=== PATIENT | male | born 1965 | race Caucasian/White ===

== ENCOUNTER 2018-05-13 08:29 | Outpatient (CLI) | payer OTHER ==
[2018-05-13 09:05] LABS: #Basophils 0.1 thou/uL (0.0-0.2); #Eosinphils 0.2 thou/uL (0.0-0.7); #Lymphocytes 2.8 thou/uL (1.20-3.40); #Monocytes 0.5 thou/uL (0.11-0.59); #Neutrophils 2.4 thou/uL (1.40-6.50); %Basophils 1.3 % (0.0-1.0); %Eosinophils 4.1 % (0.0-10.0); %Lymphocytes 46.5 % (21.0-51.0); %Monocytes 8.7 % (0.0-10.0); %Neutrophils 39.5 % (42.0-75.0); Hemoglobin 16.5 g/dL (14.0-18.0); Mean Corpuscular HGB CONC 35.2 g/dL (32.0-36.0); Mean Corpuscular Hemoglobin 33.9 pg (27.0-31.0); Mean Corpuscular Volume 96.2 fL (78.0-98.0); Mean Platelet Volume 7.8 fL (7.4-10.4); Platelet Count 263 thou/uL (130-400); RBC Distribution Width 11.2 % (11.5-14.5); Red Blood Cell (RBC) Count 4.88 mill/uL (4.70-6.10)
[2018-05-13 09:32] LABS: Anion Gap 12 mmol/L (10-20); BUN (Urea Nitrogen) 16 mg/dL (8.9-20.6); Calc. Creatinine Clearance 0 mL/min (70-130); Carbon Dioxide 25 mmol/L (22-29); Chloride 104 mmol/L (98-107); Estimated GFR-MDRD 79; Glucose 186 mg/dL (70-105); Sodium 137 mmol/L (136-145)
--- NOTE | 2018-05-15 21:44 | EKG ---
Test Reason : Blood Pressure : / mmHG Vent. Rate : 062 BPM Atrial Rate : 062 BPM P-R Int : 136 ms QRS Dur : 104 ms QT Int : 434 ms P-R-T Axes : 050 -37 004 degrees QTc Int : 440 ms Normal sinus rhythm Left axis deviation Minimal voltage criteria for LVH, may be normal variant Abnormal ECG When compared with ECG of 19-OCT-2011 11:18, No significant change was found Confirmed by Sugar GARSIA ([id number]) on 05/15/2018 9:44:02 PM Referred By: RYAN Confirmed By:Sugar GARSIA
== END 2018-05-13 08:30 | disposition home or self-care (01) ==
LOC: LABBT 08:29
PROVIDERS: ATTEND Surgery
DX: Z01.818 Encounter for other preprocedural examination (principal); K42.9 Umbilical hernia without obstruction or gangrene
CPT/HCPCS: 80048; 85025; 93005; 93010

== ENCOUNTER 2018-05-23 06:46 | Day surgery (SDC) | payer OTHER ==
[2018-05-13 08:57] VITALS: BMI 31.7
[2018-05-23] MEDS ORDERED: Bupivacaine/Epinephrine 0.25% 30 ML VIAL ONE (07:14)
[2018-05-23] MEDS ORDERED: CEFAZOLIN 2 GM/50 ML BAG ONE (08:21)
[2018-05-23] MEDS ORDERED: Fentanyl 100 MCG/2 ML VIAL ONE ×2 (08:42→10:07)
[2018-05-23] MEDS ORDERED: SUGAMMADEX SODIUM 500 MG/5 ML VIAL ONE (09:18)
[2018-05-23] MEDS ORDERED: Ondansetron PF 4 MG/2 ML Vial ONE (13:26)
[2018-05-23] MEDS ORDERED: Ketorolac Tromethamine 30 MG/ML VIAL ONE (13:26)
[2018-05-23] MEDS ORDERED: Lidocaine 1% PF 5 ML VIAL ONE (13:26)
[2018-05-23] MEDS ORDERED: PROPOFOL 200 MG/20 ML VIAL ONE (13:26)
--- NOTE | 2018-05-23 13:52 | OP ---
DATE OF PROCEDURE: 05/23/2018 PREOPERATIVE DIAGNOSIS: Umbilical hernia. POSTOPERATIVE DIAGNOSIS: Umbilical hernia. PROCEDURE PERFORMED: Umbilical repair with mesh, [address] ANESTHESIA: General. ESTIMATED BLOOD LOSS: Minimal. COMPLICATIONS: None. SPECIMENS: None. TECHNIQUE: The patient was taken to the operating room and laid supine on the operating room table. After general anesthetic was obtained, the abdomen was shaved, prepped, and draped in sterile fashion. A curved incision was made below the umbilicus. Cautery was used to dissect down to and the umbilical stalk was amputated, exposing umbilical defect. The edges of the defect were freshened. A [address] mesh was brought into the sterile field and placed in the abdominal cavity. Its tails were used to pull it up against the abdominal wall. The skirt and tails were sewn via U-stitch of permanent braided sutures laterally, superiorly and inferiorly. The mesh was covered by closing the fascia loosely over the top. The wound was irrigated. Local anesthetic was applied. The umbilical stalk was tacked back down using 3-0 Vicryl. Subcutaneous tissues were closed using 3-0 Vicryl. The skin was closed using running 4-0 Monocryl and Dermabond. The patient was sent to Recovery in stable condition. All instrument counts, needle counts, and lap counts are correct. Job ID: [id number]
== END 2018-05-23 12:29 | disposition home or self-care (01) ==
LOC: SDC 06:46
PROVIDERS: ATTEND Surgery
PROC: 0WUF0JZ Supplement Abdominal Wall with Synthetic Substitute, Open Approach (ICD-10-PCS; principal; 2018-05-23)
DX: K42.9 Umbilical hernia without obstruction or gangrene (principal); Z79.82 Long term (current) use of aspirin; Z79.84 Long term (current) use of oral hypoglycemic drugs; Z79.899 Other long term (current) drug therapy
CPT/HCPCS: J0131; J3010

== ENCOUNTER 2018-06-06 08:52 | Outpatient (CLI) | payer OTHER ==
--- NOTE | 2018-06-06 10:35 | RAD ---
PA AND LATERAL VIEWS CHEST: Date: 06/06/18 HISTORY: Cough, pneumonia. FINDINGS: Comparison made with exam of 05/30/18. The heart size is normal. The lungs are expanded without focal areas of consolidation, pneumothorax, or pleural effusions. IMPRESSION: No radiographic evidence of acute cardiopulmonary process. POS: OFF
== END 2018-06-06 08:53 | disposition home or self-care (01) ==
LOC: SCSRAD 08:52
PROVIDERS: ATTEND Nurse Practitioner Family
DX: J18.1 Lobar pneumonia, unspecified organism (principal)
CPT/HCPCS: 71046

== ENCOUNTER 2020-06-30 07:27 | Outpatient (CLI) | payer OTHER ==
[2020-06-30 16:41] LABS: #Eosinphils 0.2 10x3/uL (0.0-0.5); #Monocytes 0.6 10x3/uL (0.0-1.1); #Neutrophils 3.5 10x3/uL (1.5-8.4); %Basophils 0.5 % (0.0-2.0); %Eosinophils 2.4 % (0.0-6.0); %Lymphocytes 40.8 % (18.0-47.0); %Monocytes 8.5 % (0.0-10.0); %Neutrophils 47.5 % (40.0-75.0); Hemoglobin 14.8 g/dL (14.0-18.0); Mean Corpuscular HGB CONC 35.5 G/DL (32.0-36.0); Mean Corpuscular Hemoglobin 33.7 PG (27.0-33.0); Mean Platelet Volume 11.1 fl (7.4-10.4); Platelet Count 250 10x3/uL (130-400); RBC Distribution Width 11.6 % (11.5-14.5); Red Blood Cell (RBC) Count 4.39 10x6/uL (4.40-5.80); White Blood Cell (WBC) Count 7.4 10x3/uL (4.5-11.0)
[2020-07-01 17:49] LABS: SARS-CoV-2 PCR by NAA Not Detected (NotDetected)
== END 2020-06-30 07:28 | disposition home or self-care (01) ==
LOC: LABBT 07:27
PROVIDERS: ATTEND Orthopaedic Surgery Hand Surgery
DX: Z01.812 Encounter for preprocedural laboratory examination (principal); M95.5 Acquired deformity of pelvis; L92.3 Foreign body granuloma of the skin and subcutaneous tissue; Z20.822 Contact with and (suspected) exposure to COVID-19
CPT/HCPCS: 85025; 87635; U0003; U0005

== ENCOUNTER 2020-07-05 12:50 | Day surgery (SDC) | payer OTHER ==
[2020-07-02 10:26] VITALS: BMI 31.0
[~2020-07-05 12:50] MED LIST: Dexamethasone 20 MG/5 ML VIAL ONE; Ketorolac Tromethamine 30 MG/ML VIAL ONE; Lidocaine 1% PF 5 ML VIAL ONE; Ondansetron PF 4 MG/2 ML Vial ONE; PROPOFOL 200 MG/20 ML VIAL ONE; ePHEDrine 50 MG/ML VIAL ONE
[2020-07-05] MEDS ORDERED: Betamet Acet/Betamet Na Ph 30 MG/5 ML VIAL ONE ×2 (16:08→16:57)
[2020-07-05] MEDS ORDERED: Bacitracin Zinc Ointment 30 gm TUBE ONE (16:08)
[2020-07-05] MEDS ORDERED: Bupivacaine PF 0.5% 30 ML VIAL ONE (16:08)
[2020-07-05] MEDS ORDERED: Fentanyl 100 MCG/2 ML VIAL ONE (16:28)
--- NOTE | 2020-07-06 07:16 | EKG ---
Test Reason : PREOP Blood Pressure : / mmHG Vent. Rate : 066 BPM Atrial Rate : 066 BPM P-R Int : 124 ms QRS Dur : 104 ms QT Int : 416 ms P-R-T Axes : 026 -32 003 degrees QTc Int : 436 ms Normal sinus rhythm Left axis deviation Minimal voltage criteria for LVH, may be normal variant ns T wave changes Abnormal ECG No previous ECGs available Confirmed by DR. Faviola XIE ([id number]) on 07/06/2020 7:16:17 AM Referred By: RAHEL Confirmed By:DR. Faviola XIE
--- NOTE | 2020-07-07 10:45 | OP ---
DATE OF PROCEDURE: 07/05/2020 PREOPERATIVE DIAGNOSIS: Right ring finger mass, granuloma, 2 cm or more. POSTOPERATIVE DIAGNOSES: Right ring finger mass, granuloma, 2 cm or more, with findings of digital nerve moved ulnarly and slightly palmar because of the mass which was radial and dorsal adherent to the posterior fascia of the distal third of the phalanx. PROCEDURES PERFORMED: 1. 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 2. Neuroplasty of digital nerve, radial aspect, under magnification. SPECIMEN: 2 cm granuloma to Pathology as specimen in formalin. ESTIMATED BLOOD LOSS: 10 mL. TOURNIQUET TIME: 19 minutes. INDICATIONS FOR PROCEDURE: The patient reports a mass intermittently with certain touches, gives him some numbness and tingling ulnar to it. It has been there for years. He thought he had a piece of industrial grade plastic into the area causing the wound. He removed what he could, but now he has had this mass which is now progressively painful. No history of infection. DESCRIPTION OF PROCEDURE: After successful general endotracheal anesthesia, limb prepped and draped. We gave him 20 mL of 0.5% Marcaine, 10 prior to procedure and 10 after in a dorsal approach, metacarpophalangeal joint level block of this middle finger. We then exsanguinated the limb, inflated the tourniquet to 250 mmHg pressure, and made a zigzag incision radial and dorsal to the mass and then extended it 5 mm proximal, so we could visualize the nerves. We could see the nerve rami and all the rami with neuroplasty were visualized along with associated . They were all moved ulnarly from this radial base dorsal mass. On its dorsal side, the mass was very adherent to the fascia and connective tissue under the base of the bone to the distal nail bed and it was moved out of her via blunt dissection using the tenotomy scissors in combination with a right angle. The same technique was used by gently putting traction on the mass radially. To separate it from the ulnar structures w required a formal neuroplasty under magnification. Once this was done, the mass was easily removed. We dissected down through the mass, did not see a foreign body encapsulated, but it appeared to be that consisted of a granuloma or giant cell tumor. It was white compared to the more pearly white, more darker white color of the surrounding nerve rami. We released the tourniquet. We obtained hemostasis. We then closed the wound after placing 3 mL of Celestone in its bed with interrupted 4-0 nylon in a simple pattern. The patient had remaining Marcaine given as a block (total 20 mL of 0.5% Marcaine with epinephrine), had a finger tube gauze bulky hand dressing held on lightly by a 2 inch Coban, and he left the operating room without evidence of anesthetic or operative complication. Job ID: [id number]
== END 2020-07-05 19:20 | disposition home or self-care (01) ==
LOC: SDC 12:50
PROVIDERS: ATTEND Orthopaedic Surgery Hand Surgery
PROC: 0KBC0ZZ Excision of Right Hand Muscle, Open Approach (ICD-10-PCS; principal; 2020-07-05)
DX: D48.0 Neoplasm of uncertain behavior of bone and articular cartilage (principal); L91.0 Hypertrophic scar; I10 Essential (primary) hypertension; E78.5 Hyperlipidemia, unspecified; K21.9 Gastro-esophageal reflux disease without esophagitis; E11.9 Type 2 diabetes mellitus without complications; Z79.84 Long term (current) use of oral hypoglycemic drugs; Z79.899 Other long term (current) drug therapy
CPT/HCPCS: 88305; 93005; 93010; J0690; J0702; J1100; J1885; J2405; J2704; J3010; J3490; S0020